=== PATIENT | female | born 1975 | race Caucasian/White ===

== ENCOUNTER 2021-08-23 11:36 | Emergency (ER) | payer OTHER ==
[~2021-08-23 11:36] MED LIST: FLONASE ALLER15.8 ML
[2021-08-23 13:09] LABS: BASOPHIL 0.3 % (0-2); EOSINOPHIL 1.2 % (0-5); HCT 44.1 % (37.0-47.0); HGB 15.6 g/dl (12.5-16.0); LYMPHOCYTE 8.6 % (15-48); MCH 32.2 pg (25.0-31.0); MCHC 35.4 g/dL (32.0-36.0); MCV 91.1 fL (78.0-100.0); MONOCYTE 5.3 % (0-12); MPV 9.5 fL (6.0-9.5); NEUTROPHIL 84.3 % (41-80); NRBC 0; PLT 163 K/uL (150-400); RBC 4.84 M/uL (4.20-5.40); RDW 11.9 % (11.5-14.0); WBC 7.2 K/uL (4.0-10.5)
[2021-08-23 13:58] LABS: BILIRUBIN NEGATIVE (NEGATIVE); BLOOD 2+ Ery/uL (NEGATIVE); CLARITY CLEAR (CLEAR); COLOR YELLOW (YELLOW); GLUCOSE (U) NORMAL (NORMAL); LEUKOCYTES NEGATIVE Leu/uL (NEGATIVE); NITRITE NEGATIVE (NEGATIVE); PROTEIN NEGATIVE (NEGATIVE); SPECIFIC GRAVITY <=1.005 (1.001-1.030); UROBILINOGEN 0.2 mg/dL (0.2-1.0)
[2021-08-23 14:04] LABS: BACTERIA TRACE; URINARY WBC RARE
[2021-08-23 14:16] LABS: ALBUMIN 3.9 g/dL (3.4-5.0); BILIRUBIN - TOTAL 1.2 mg/dL (0.2-1.0); BUN/CREAT RATIO (CALC) 16.2 RATIO; CREATININE 0.68 mg/dL (0.51-0.95); GLOBULIN (CALCULATION) 3.2 g/dL; POTASSIUM 3.6 mmol/L (3.5-5.1); TOTAL PROTEIN 7.1 g/dL (6.4-8.2)
[2021-08-23] MEDS ORDERED: ONDANSETRON ODT4 MG PO (15:55)
[2021-08-23] MEDS ORDERED: CARAFATE S500 MG/TSP PO (15:55)
[2021-08-23] MEDS ORDERED: PROTONIX 40MG T40 MG PO (15:55)
== END 2021-08-23 16:32 | disposition home or self-care (01) ==
LOC: FER 11:36
PROVIDERS: Emergency Medicine
DX: R07.89 Other chest pain (principal); K21.00 Gastro-esophageal reflux disease with esophagitis, without bleeding; R11.2 Nausea with vomiting, unspecified; R19.7 Diarrhea, unspecified; F17.210 Nicotine dependence, cigarettes, uncomplicated; Z20.822 Contact with and (suspected) exposure to COVID-19
CPT/HCPCS: 36415; 71045; 71275; 80053; 81001; 83690; 83735; 83880; 84145; 84484; 85025; 85379; 93005; J7030; Q9967; U0002